=== PATIENT | male | born 1955 | race Caucasian/White ===

== ENCOUNTER → 2016-11-21 | Outpatient (CLI) | payer MEDICARE ==
[~2016-11-21] MED LIST: ASPI-496 PO; ATOR10TA9 PO; CARV3.122 PO; CYCLOBENZAPRINE PO; EZET10TA18 PO; IBUP-1222 PO; LISI-170 PO; METF10002 PO
[2016-11-21 13:43] LABS: ASPARTATE AMINO TRANSFERASE 27 U/L (15-37); BLOOD UREA NITROGEN 20 mg/dL (7-18)
== END | disposition home or self-care (01) ==
LOC: CFH 07:21
PROVIDERS: ATTEND Internal Medicine Cardiovascular Disease
DX: E78.2 Mixed hyperlipidemia (principal); I11.9 Hypertensive heart disease without heart failure
CPT/HCPCS: 36415; 80053; 80061

== ENCOUNTER 2017-09-10 11:20 | Emergency (ER) | payer MEDICARE ==
[~2017-09-10] VITALS: Ht 177.8 cm; Wt 97.2 kg
[2017-09-10 12:24] LABS: BASOPHILS # (AUTO) 0.03 x10^3/uL (0-0.1); BASOPHILS % (AUTO) 1 % (0-1); EOSINOPHILS # (AUTO) 0.21 x10^3/uL (0-0.4); EOSINOPHILS % (AUTO) 3 % (1-7); LYMPHOCYTES # (AUTO) 2.15 x10^3/uL (1-3.4); LYMPHOCYTES % (AUTO) 32 % (22-44); MD NO; MEAN CORPUSCULAR HEMOGLOBIN 29.4 pg (27.5-34.5); MEAN CORPUSCULAR HGB CONC 33.1 g/dL (33.2-36.2); MEAN CORPUSCULAR VOLUME 88.7 fL (81-97); MEAN PLATELET VOLUME 6.9 fL (7.4-10.4); MONOCYTES # (AUTO) 0.62 x10^3/uL (0.2-0.8); MONOCYTES % (AUTO) 9 % (2-9); NEUTROPHILS # (AUTO) 3.76 x10^3/uL (1.8-6.8); NEUTROPHILS % (AUTO) 56 % (42-75); PLATELET COUNT 340 x10^3/uL (130-400); RED BLOOD COUNT 5.01 x10^6/uL (4.38-5.82); RED CELL DISTRIBUTION WIDTH 15.6 % (9.4-14.8)
[2017-09-10 12:27] VITALS: BP 174/100
[2017-09-10 12:32] LABS: PROTHROMBIN TIME 10.4 Seconds (9.6-11.5)
[2017-09-10 12:37] LABS: ALBUMIN 3.5 g/dL (3.4-5.0); ANION GAP 10 mmol/L (5-15); CALCIUM 8.4 mg/dL (8.5-10.1); CHLORIDE 109 mmol/L (98-107)
[2017-09-10 12:41] LABS: TROPONIN I < 0.015 ng/mL (0.000-0.045)
== END 2017-09-10 14:17 | disposition home or self-care (01) ==
LOC: ED 14:11
DX: R07.89 Other chest pain (principal); E78.5 Hyperlipidemia, unspecified; I25.10 Atherosclerotic heart disease of native coronary artery without angina pectoris; I10 Essential (primary) hypertension; I25.2 Old myocardial infarction; E11.9 Type 2 diabetes mellitus without complications; Z96.89 Presence of other specified functional implants
CPT/HCPCS: 36415; 71045; 80048; 82040; 84484; 85025; 85610; 85730; 93005; 99285

== ENCOUNTER → 2018-02-22 | Outpatient (CLI) | payer MEDICARE ==
[2018-02-22 07:39] LABS: ALBUMIN 3.5 g/dL (3.4-5.0); ANION GAP 8 mmol/L (5-15); CALCIUM 7.5 mg/dL (8.5-10.1); CHLORIDE 109 mmol/L (98-107)
[2018-02-22 07:51] LABS: ALANINE AMINOTRANSFERASE 36 U/L (12-78); ALKALINE PHOSPHATASE 69 U/L (45-117); BILIRUBIN,TOTAL 0.4 mg/dL (0.2-1.0); CHOL/HDL RATIO 3.2; CHOLESTEROL, TOTAL 130 mg/dL (140-239); CREATININE 0.96 mg/dL (0.7-1.3); HDL CHOL % 32 % (26-37); HDL CHOLESTEROL (DIRECT) 41 mg/dL (40-60); LDL CHOLESTEROL,CALCULATED 67 mg/dL (54-169); LDL/HDL RATIO 1.6 (0.5-3.0); TOTAL PROTEIN 6.7 g/dL (6.4-8.2); TRIGLYCERIDES 112 mg/dL (50-200); VLDL CHOLESTEROL 22 mg/dL (0-25)
== END | disposition home or self-care (01) ==
LOC: LAB 07:05
PROVIDERS: ATTEND Family Medicine
DX: E11.21 Type 2 diabetes mellitus with diabetic nephropathy (principal); I10 Essential (primary) hypertension
CPT/HCPCS: 36415; 80053; 80061; 82043; 82570; 84443

== ENCOUNTER 2018-02-24 10:54 | Emergency (ER) | payer MEDICARE ==
[~2018-02-24] VITALS: Ht 177.8 cm; Wt 102.1 kg
[2018-02-24] MEDS ORDERED: SODIUM CHLORIDE FLUSH 10ML SYR IVF ONE (11:30)
[2018-02-24] MEDS ORDERED: KETOROLAC 30 MG/1 ML IVPush ONE (11:30)
[2018-02-24] MEDS ORDERED: ONDANSETRON 2MG/ML, 2ML IVPush ONE (11:30)
[2018-02-24 11:31] LABS: BASOPHILS # (AUTO) 0.06 x10^3/uL (0-0.1); BASOPHILS % (AUTO) 1 % (0-1); EOSINOPHILS # (AUTO) 0.19 x10^3/uL (0-0.4); EOSINOPHILS % (AUTO) 4 % (1-7); LYMPHOCYTES # (AUTO) 1.51 x10^3/uL (1-3.4); LYMPHOCYTES % (AUTO) 27 % (22-44); MD NO; MEAN CORPUSCULAR HEMOGLOBIN 29.3 pg (27.5-34.5); MEAN CORPUSCULAR VOLUME 88.8 fL (81-97); MONOCYTES # (AUTO) 0.32 x10^3/uL (0.2-0.8); MONOCYTES % (AUTO) 6 % (2-9); NEUTROPHILS # (AUTO) 3.48 x10^3/uL (1.8-6.8); NEUTROPHILS % (AUTO) 63 % (42-75); PLATELET COUNT 330 x10^3/uL (130-400); RED BLOOD COUNT 4.88 x10^6/uL (4.38-5.82); RED CELL DISTRIBUTION WIDTH 15.7 % (9.4-14.8)
[2018-02-24] MEDS ORDERED: KETOROLAC 30 MG/1 ML ONE (11:34)
[2018-02-24] MEDS ORDERED: ONDANSETRON 2MG/ML, 2ML ONE (11:34)
[2018-02-24 11:44] LABS: ALANINE AMINOTRANSFERASE 43 U/L (12-78); ALBUMIN 3.8 g/dL (3.4-5.0); ANION GAP 8 mmol/L (5-15); CALCIUM 8.6 mg/dL (8.5-10.1); CHLORIDE 108 mmol/L (98-107); CREATININE 1.01 mg/dL (0.7-1.3)
[2018-02-24 11:46] LABS: ALKALINE PHOSPHATASE 70 U/L (45-117); BILIRUBIN,TOTAL 0.4 mg/dL (0.2-1.0); TOTAL PROTEIN 7.1 g/dL (6.4-8.2)
[2018-02-24 12:55] LABS: MICROSCOPIC AUTO
[2018-02-24 12:59] LABS: CULTURE INDICATED? NO
[2018-02-24 13:36] VITALS: BP 174/94
== END 2018-02-24 13:38 | disposition home or self-care (01) ==
LOC: ED 13:05
DX: N13.2 Hydronephrosis with renal and ureteral calculous obstruction (principal); R31.9 Hematuria, unspecified; E11.9 Type 2 diabetes mellitus without complications; E78.5 Hyperlipidemia, unspecified; I25.2 Old myocardial infarction; I10 Essential (primary) hypertension; I25.10 Atherosclerotic heart disease of native coronary artery without angina pectoris; Z95.0 Presence of cardiac pacemaker
CPT/HCPCS: 36415; 74176; 80053; 81001; 85025; 96374; 96375; 99284; J1885; J2405

== ENCOUNTER → 2018-02-24 | Outpatient (CLI) | payer MEDICARE | END | disposition home or self-care (01) | LOC: CFH 10:10 | PROVIDERS: ATTEND Family Medicine | DX: I25.10 Atherosclerotic heart disease of native coronary artery without angina pectoris (principal); R60.0 Localized edema; Z95.0 Presence of cardiac pacemaker | CPT/HCPCS: 36415; 71046; 83880 ==

== ENCOUNTER → 2018-04-09 | Outpatient (CLI) | payer MEDICARE ==
[2018-04-09 12:40] LABS: BASOPHILS # (AUTO) 0.04 x10^3/uL (0-0.1); BASOPHILS % (AUTO) 1 % (0-1); EOSINOPHILS # (AUTO) 0.16 x10^3/uL (0-0.4); EOSINOPHILS % (AUTO) 3 % (1-7); LYMPHOCYTES # (AUTO) 1.77 x10^3/uL (1-3.4); LYMPHOCYTES % (AUTO) 36 % (22-44); MD NO; MEAN CORPUSCULAR HEMOGLOBIN 29.2 pg (27.5-34.5); MEAN CORPUSCULAR HGB CONC 33.2 g/dL (33.2-36.2); MEAN CORPUSCULAR VOLUME 88.1 fL (81-97); MEAN PLATELET VOLUME 7.5 fL (7.4-10.4); MONOCYTES # (AUTO) 0.38 x10^3/uL (0.2-0.8); MONOCYTES % (AUTO) 8 % (2-9); NEUTROPHILS # (AUTO) 2.52 x10^3/uL (1.8-6.8); NEUTROPHILS % (AUTO) 52 % (42-75); PLATELET COUNT 314 x10^3/uL (130-400); RED BLOOD COUNT 5.01 x10^6/uL (4.38-5.82)
[2018-04-09 13:42] LABS: ALBUMIN 3.8 g/dL (3.4-5.0); ANION GAP 8 mmol/L (5-15); CALCIUM 8.9 mg/dL (8.5-10.1); CHLORIDE 108 mmol/L (98-107)
[2018-04-09 13:45] LABS: ALANINE AMINOTRANSFERASE 35 U/L (12-78); ALKALINE PHOSPHATASE 76 U/L (45-117); BILIRUBIN,TOTAL 0.6 mg/dL (0.2-1.0); CHOL/HDL RATIO 3.2; CHOLESTEROL, TOTAL 122 mg/dL (140-239); HDL CHOL % 31 % (26-37); HDL CHOLESTEROL (DIRECT) 38 mg/dL (40-60); LDL CHOLESTEROL,CALCULATED 66 mg/dL (54-169); LDL/HDL RATIO 1.7 (0.5-3.0); TOTAL PROTEIN 7.2 g/dL (6.4-8.2); TRIGLYCERIDES 91 mg/dL (50-200); VLDL CHOLESTEROL 18 mg/dL (0-25)
== END | disposition home or self-care (01) ==
LOC: CFH 06:36
PROVIDERS: ATTEND Physician Assistant Medical
DX: I10 Essential (primary) hypertension (principal); E78.2 Mixed hyperlipidemia; R53.83 Other fatigue; Z79.899 Other long term (current) drug therapy; Z79.82 Long term (current) use of aspirin; Z88.5 Allergy status to narcotic agent; Z91.013 Allergy to seafood
CPT/HCPCS: 36415; 80053; 80061; 85025

== ENCOUNTER → 2018-04-20 | Outpatient (CLI) | payer MEDICARE | END | disposition home or self-care (01) | LOC: CVU 06:42 | PROVIDERS: ATTEND Physician Assistant Medical | DX: I07.1 Rheumatic tricuspid insufficiency (principal); E78.00 Pure hypercholesterolemia, unspecified; R07.9 Chest pain, unspecified; I11.9 Hypertensive heart disease without heart failure | CPT/HCPCS: 0399T; 93306 ==

== ENCOUNTER → 2018-05-12 | Outpatient (CLI) | payer MEDICARE ==
[~2018-05-12] MED LIST changes: +REGADENOSON 0.4 MG/5 ML SYRINGE ONE
== END | disposition home or self-care (01) ==
LOC: CFH 08:40
PROVIDERS: ATTEND Family Medicine
DX: I10 Essential (primary) hypertension (principal); R07.9 Chest pain, unspecified; I47.1 Supraventricular tachycardia; E11.9 Type 2 diabetes mellitus without complications
CPT/HCPCS: 78452; 93017; A9502; J2785

== ENCOUNTER 2018-09-22 16:02 | Inpatient (IN) | payer MEDICARE, MEDICAID ==
[~2018-09-22] VITALS: Ht 177.8 cm; Wt 105.3 kg
[2018-09-25 07:40] VITALS: BP 121/82
== END 2018-09-25 09:40 | disposition left against medical advice (07) | DRG 669 ==
LOC: ED 17:58 → OBSVTOIN 18:21 → EDIP 18:21 → 3NW 19:20
PROVIDERS: ADMIT Internal Medicine; ATTEND Internal Medicine
PROC: 0TC68ZZ Extirpation of Matter from Right Ureter, Via Natural or Artificial Opening Endoscopic (ICD-10-PCS; principal; 2018-09-23)
DX: N13.2 Hydronephrosis with renal and ureteral calculous obstruction (principal); E44.0 Moderate protein-calorie malnutrition; G47.31 Primary central sleep apnea; I25.10 Atherosclerotic heart disease of native coronary artery without angina pectoris; I10 Essential (primary) hypertension; E78.5 Hyperlipidemia, unspecified; E11.9 Type 2 diabetes mellitus without complications; G47.33 Obstructive sleep apnea (adult) (pediatric); R31.29 Other microscopic hematuria; Z90.49 Acquired absence of other specified parts of digestive tract; Z87.442 Personal history of urinary calculi; Z85.038 Personal history of other malignant neoplasm of large intestine; Z95.0 Presence of cardiac pacemaker; I25.2 Old myocardial infarction; Z88.8 Allergy status to other drugs, medicaments and biological substances; Z88.5 Allergy status to narcotic agent; Z91.013 Allergy to seafood; Z68.33 Body mass index [BMI] 33.0-33.9, adult
CPT/HCPCS: 36415; 70450; 74176; 80048; 80053; 81001; 82360; 82962; 83735; 84100; 84443; 85025; 88300; 93005; 96374; 96375; 96376; G0378; J0744; J1100; J1885; J2250; J2405; J2550; J2704; J3010; C1769; J2270; J2370; J3475; J7030

== ENCOUNTER 2018-12-28 07:29 | Outpatient (CLI) | payer MEDICARE, MEDICAID ==
[~2018-12-28 07:29] MED LIST changes: +AMLO-150 PO; +ATOR-2 PO; +CARV25TA12 PO; -EZET10TA18 PO; +EZET10TA70 PO; +HYDR-3237 PO; +MULT-717 PO; +NITR0.4T28 SL; -REGADENOSON 0.4 MG/5 ML SYRINGE ONE; +UBID100C41 PO
== END 2018-12-28 23:59 | disposition home or self-care (01) ==
LOC: CFH 07:29
PROVIDERS: ATTEND Family Medicine
DX: M54.5 Low back pain (principal); M79.605 Pain in left leg
CPT/HCPCS: 72131

== ENCOUNTER → 2019-03-21 | Outpatient (CLI) | payer MEDICARE, MEDICAID ==
[2019-03-21 16:02] LABS: BASOPHILS # (AUTO) 0.04 x10^3/uL (0-0.1); BASOPHILS % (AUTO) 1 % (0-1); EOSINOPHILS % (AUTO) 4 % (1-7); LYMPHOCYTES # (AUTO) 1.95 x10^3/uL (1-3.4); LYMPHOCYTES % (AUTO) 33 % (22-44); MD NO; MEAN CORPUSCULAR HEMOGLOBIN 25.8 pg (27.5-34.5); MEAN CORPUSCULAR VOLUME 80.7 fL (81-97); MEAN PLATELET VOLUME 7.4 fL (7.4-10.4); MONOCYTES # (AUTO) 0.47 x10^3/uL (0.2-0.8); MONOCYTES % (AUTO) 8 % (2-9); NEUTROPHILS # (AUTO) 3.27 x10^3/uL (1.8-6.8); NEUTROPHILS % (AUTO) 55 % (42-75); PLATELET COUNT 380 x10^3/uL (130-400); RED BLOOD COUNT 4.63 x10^6/uL (4.38-5.82); RED CELL DISTRIBUTION WIDTH 16.3 % (9.4-14.8)
[2019-03-21 16:18] LABS: HCT (SEDRATE) 37.4 % (39.2-51.8)
[2019-03-21 16:21] LABS: ALBUMIN 3.6 g/dL (3.4-5.0); ANION GAP 10 mmol/L (5-15); CALCIUM 8.3 mg/dL (8.5-10.1); CHLORIDE 111 mmol/L (98-107)
[2019-03-21 16:49] LABS: ALANINE AMINOTRANSFERASE 36 U/L (12-78); ALKALINE PHOSPHATASE 65 U/L (45-117); BILIRUBIN,TOTAL 0.8 mg/dL (0.2-1.0); C-REACTIVE PROTEIN, QUANT 0.03 mg/dL (0.02-0.49); CREATINE KINASE, TOTAL 65 U/L (39-308); CREATININE 1.03 mg/dL (0.7-1.3)
[2019-03-21 16:51] LABS: FOLATE LEVEL > 20.0 ng/mL (3.1-17.5)
== END | disposition home or self-care (01) ==
LOC: CFH 14:30
PROVIDERS: ATTEND Family Medicine
DX: E11.21 Type 2 diabetes mellitus with diabetic nephropathy (principal); G12.21 Amyotrophic lateral sclerosis; M62.81 Muscle weakness (generalized)
CPT/HCPCS: 36415; 80053; 82550; 82553; 82607; 82746; 83036; 84402; 84403; 85025; 85651; 86038; 86140; 86200; 86430

== ENCOUNTER → 2019-04-01 | Outpatient (CLI) | payer MEDICARE, MEDICAID | END | disposition home or self-care (01) | LOC: CFH 12:18 | PROVIDERS: ATTEND Family Medicine | DX: M50.322 Other cervical disc degeneration at C5-C6 level (principal); M48.02 Spinal stenosis, cervical region; G12.21 Amyotrophic lateral sclerosis; M62.81 Muscle weakness (generalized) | CPT/HCPCS: 72125; 72128 ==

== ENCOUNTER 2019-06-08 11:23 | Outpatient (CLI) | payer MEDICARE, MEDICAID ==
[2019-06-08 15:39] LABS: BASOPHILS # (AUTO) 0.03 x10^3/uL (0-0.1); BASOPHILS % (AUTO) 1 % (0-1); EOSINOPHILS # (AUTO) 0.16 x10^3/uL (0-0.4); EOSINOPHILS % (AUTO) 3 % (1-7); LYMPHOCYTES # (AUTO) 1.85 x10^3/uL (1-3.4); LYMPHOCYTES % (AUTO) 32 % (22-44); MD NO; MEAN CORPUSCULAR HEMOGLOBIN 24.8 pg (27.5-34.5); MEAN CORPUSCULAR VOLUME 77.5 fL (81-97); MEAN PLATELET VOLUME 7.3 fL (7.4-10.4); MONOCYTES # (AUTO) 0.32 x10^3/uL (0.2-0.8); MONOCYTES % (AUTO) 6 % (2-9); NEUTROPHILS # (AUTO) 3.39 x10^3/uL (1.8-6.8); NEUTROPHILS % (AUTO) 59 % (42-75); PLATELET COUNT 419 x10^3/uL (130-400); RED BLOOD COUNT 5.11 x10^6/uL (4.38-5.82); RED CELL DISTRIBUTION WIDTH 20.4 % (9.4-14.8)
[2019-06-08 15:48] LABS: ALBUMIN 3.6 g/dL (3.4-5.0); ANION GAP 9 mmol/L (5-15); CHLORIDE 107 mmol/L (98-107)
[2019-06-08 15:52] LABS: ALANINE AMINOTRANSFERASE 36 U/L (12-78); ALKALINE PHOSPHATASE 84 U/L (45-117); BILIRUBIN,TOTAL 0.2 mg/dL (0.2-1.0); CREATININE 1.19 mg/dL (0.7-1.3); TOTAL PROTEIN 7.2 g/dL (6.4-8.2)
== END 2019-06-08 23:59 | disposition home or self-care (01) ==
LOC: CFH 11:23
PROVIDERS: ATTEND Family Medicine
DX: E83.51 Hypocalcemia (principal); D64.9 Anemia, unspecified
CPT/HCPCS: 36415; 80053; 85025

== ENCOUNTER 2019-07-27 09:58 | Inpatient (IN) | payer MEDICARE, MEDICAID ==
[~2019-07-27] VITALS: Ht 177.8 cm; Wt 87.6 kg
--- NOTE | 2019-07-27 10:27 | NUR ---
REPORT RECEIVED FROM EMS; PT ARRIVES BY AMBULANCE WITH COMPLAINT OF DIARRHEA X 1 WEEK - STATES HE HAS NOTED "SOME BLACK AND RED BLOOD CLOTS" IN STOOL, THIS AM PT AWOKE WITH DIZZINESS WHICH HAS GRADUALLY INCREASED, LEFT SIDED CHEST PAIN, SOB, NAUSEA AND VOMITING. PT STATES HE COUGHED X 1 THIS AM AND NOTED BLOOD TINGED SPUTUM. PT NOTES HEADACHE PRESENT SINCE YESTERDAY, STATES HE HAS CHRONIC HEADACHES. PT DENIES FEVER, SICK CONTACTS, SORE THROAT, TRAVEL, DENIES COUGH WITH EXCEPTION TO ONE EPISODE THIS AM. ZOFRAN 4 MG , ASA 325 MG GIVEN UPHOLSTERY TRIMMER. EKG TAKEN ON ARRIVAL. PT ATTACHED TO ALL MONITORS. PER EMS, PT HAS HAD MOSTLY PACED RHYTHM AT RATE 60, BUT DID HAVE SEVERAL SHORT EPISODES OF BRADYCARDIA (RATE 30'S). SINCE ARRIVAL, PT HAS BEEN PACED AT RATE 60. PT IS A&OX4, REPSS EVEN AND UNLABORED. NEURO INTACT, NO FOCAL WEAKNESS. NO DRIFT NOTED, BILATERAL GRASP EQUAL. PT IN GOWN, CALL LIGHT IN REACH. AWAITING LAB AND CXR RESULTS.
--- NOTE | 2019-07-27 10:32 | NUR ---
RAPHAEL MARINO AT BEDSIDE.
[2019-07-27 10:35] LABS: BASOPHILS # (AUTO) 0.03 x10^3/uL (0-0.1); BASOPHILS % (AUTO) 1 % (0-1); EOSINOPHILS # (AUTO) 0.27 x10^3/uL (0-0.4); EOSINOPHILS % (AUTO) 4 % (1-7); LYMPHOCYTES # (AUTO) 1.25 x10^3/uL (1-3.4); LYMPHOCYTES % (AUTO) 21 % (22-44); MD NO; MEAN CORPUSCULAR HGB CONC 31.6 g/dL (33.2-36.2); MEAN PLATELET VOLUME 6.3 fL (7.4-10.4); MONOCYTES # (AUTO) 0.49 x10^3/uL (0.2-0.8); MONOCYTES % (AUTO) 8 % (2-9); NEUTROPHILS # (AUTO) 4.07 x10^3/uL (1.8-6.8); NEUTROPHILS % (AUTO) 67 % (42-75); PLATELET COUNT 351 x10^3/uL (130-400); RED BLOOD COUNT 4.17 x10^6/uL (4.38-5.82); RED CELL DISTRIBUTION WIDTH 19.1 % (9.4-14.8)
--- NOTE | 2019-07-27 10:48 | NUR ---
PT'S SYMPTOMOLOGY DISCUSSED WITH RAPHAEL MARINO, PER PT IS NOT SUSCPICIOUS FOR COVID.
[2019-07-27 10:51] LABS: ALBUMIN 3.1 g/dL (3.4-5.0); ANION GAP 9 mmol/L (5-15); CALCIUM 8.3 mg/dL (8.5-10.1); CHLORIDE 111 mmol/L (98-107)
[2019-07-27 10:57] LABS: ALKALINE PHOSPHATASE 90 U/L (45-117); CREATININE 0.91 mg/dL (0.7-1.3); TOTAL PROTEIN 6.6 g/dL (6.4-8.2); TROPONIN I < 0.015 ng/mL (0.000-0.045)
[2019-07-27 11:05] LABS: ALANINE AMINOTRANSFERASE 27 U/L (12-78); BILIRUBIN,TOTAL 0.5 mg/dL (0.2-1.0)
--- NOTE | 2019-07-27 11:14 | NUR ---
PACEMAKER INTERROGATION COMPLETE, INTERROGATION DEVICE INITIALLY HAD TRANSMITTOR ERROR SIGNAL. [facility] REP CALLED, DEVICE WAS TROUBLESHOOTED AND REP (ALVAREZ) CONFIRMED READING HAS BEEN TRANSMITTED TO COMPANY. THIS RN WAS TOLD TO EXPECT REPORT TO BE FAXED TO ED WITHIN 15 MIN. THIS RN COMFIRMED [employer] HAS CORRECT FAX NUMBER.
--- NOTE | 2019-07-27 11:27 | NUR ---
ORTHOSTATIC VS TAKEN BY ANGELIA WILL FOLLOWS: SUPINE - 95/56; HR 94 SITTING - 98/65; HR 97 STANDING - 92/57; HR 97
--- NOTE | 2019-07-27 11:29 | NUR ---
THIS RN SPOKE WITH [facility] [employer] MGR TELLO WHO HAS REVIEWED PACER INTERROGATION, PER REP, PT HAS NOT BEEN BRADYCARDIC, STATES THAT PACEMAKER SHOWS NO SIGNS OF DYSFUNCTION.
[2019-07-27] MEDS ORDERED: SODIUM CHLORIDE 0.9% 1,000ML IVBOLUS ONE (12:00)
[2019-07-27] MEDS ORDERED: IRON PO (12:00)
[2019-07-27] MEDS ORDERED: ONDANSETRON ODT 4 MG PO ONE (12:00)
[2019-07-27] MEDS ORDERED: ESCI10TA PO (12:02)
[2019-07-27] MEDS: SODIUM CHLORIDE 0.9% 1,000 ML IV SCH ×2 (12:03→22:24)
--- NOTE | 2019-07-27 12:12 | NUR ---
order received for covid swab, pt placed in droplet plus precautions. surgical mask has been on patient for entirety of ED visit.
[2019-07-27] MEDS ORDERED: ONDANSETRON ODT 4 MG ONE (12:15)
[2019-07-27] MEDS ORDERED: ONDANSETRON 2MG/ML, 2ML IVPush PRN (12:30)
[2019-07-27] MEDS ORDERED: hydrALAzine 20 MG/ML, 1ML IVPush PRN (12:30)
[2019-07-27] MEDS ORDERED: PROMETHAZINE 25 MG/ML, 1ML IM PRN (12:30)
[2019-07-27] MEDS ORDERED: LABETALOL 5MG/ML, 20ML IVPush PRN (12:30)
--- NOTE | 2019-07-27 12:42 | NUR ---
REPORT GIVEN TO ZOHAIB HERNÁNDEZ, PT AWAITING TRANSPORT TO [facility].
[2019-07-27 12:49] LABS: % IRON SATURATION 21 % (20-55); IRON LEVEL 69 mcg/dL (65-175); TOTAL IRON BINDING CAPACITY 325 mcg/dL (250-450)
[2019-07-27 12:52] LABS: TROPONIN I < 0.015 ng/mL (0.000-0.045)
--- NOTE | 2019-07-27 13:06 | NUR ---
covid swab collected by this RN, labeled and walked to lab. pt transported to [id number] by tech x 2. pt a&o, resps even and unlabored, neurologically intact, paced rate 60s with no ectopy on monitor at time of transport.
[2019-07-27 13:17] LABS: HCT (SEDRATE) 31.1 % (39.2-51.8)
[2019-07-27 13:22] VITALS: BP 118/70
[2019-07-27] MEDS: INSULIN LISPRO 100 UNITS/ML, PEN SQ-INSULIN SCH ×3 (13:25→20:42)
[2019-07-27 14:16] VITALS: BP 118/70
[2019-07-27] MEDS: ACETAMINOPHEN 325 MG TABLET PO PRN ×2 (15:23→20:40)
[2019-07-27 18:27] VITALS: BP 118/70
[2019-07-27] MEDS: ATORVASTATIN 80 MG TABLET PO SCH (20:40)
[2019-07-27] MEDS: LISINOPRIL 20 MG TABLET PO SCH (20:40)
[2019-07-27] MEDS: CARVEDILOL 25 MG TABLET PO SCH (20:40)
[2019-07-27] MEDS: MECLIZINE CHEWABLE 25 MG TAB PO SCH (20:40)
[2019-07-27 21:24] LABS: TROPONIN I < 0.015 ng/mL (0.000-0.045)
[2019-07-28 00:03] VITALS: BP 103/64
[2019-07-28 02:47] LABS: BASOPHILS # (AUTO) 0.03 x10^3/uL (0-0.1); BASOPHILS % (AUTO) 1 % (0-1); EOSINOPHILS % (AUTO) 5 % (1-7); LYMPHOCYTES # (AUTO) 1.73 x10^3/uL (1-3.4); LYMPHOCYTES % (AUTO) 44 % (22-44); MD NO; MEAN CORPUSCULAR HGB CONC 32.1 g/dL (33.2-36.2); MEAN CORPUSCULAR VOLUME 77.8 fL (81-97); MEAN PLATELET VOLUME 6.7 fL (7.4-10.4); MONOCYTES # (AUTO) 0.44 x10^3/uL (0.2-0.8); MONOCYTES % (AUTO) 11 % (2-9); NEUTROPHILS # (AUTO) 1.59 x10^3/uL (1.8-6.8); NEUTROPHILS % (AUTO) 40 % (42-75); PLATELET COUNT 337 x10^3/uL (130-400); RED BLOOD COUNT 3.79 x10^6/uL (4.38-5.82); RED CELL DISTRIBUTION WIDTH 19.6 % (9.4-14.8)
[2019-07-28 02:53] LABS: ALANINE AMINOTRANSFERASE 26 U/L (12-78); ALBUMIN 2.7 g/dL (3.4-5.0); ANION GAP 4 mmol/L (5-15); CHLORIDE 116 mmol/L (98-107); CREATININE 0.75 mg/dL (0.7-1.3)
[2019-07-28 02:55] LABS: ALKALINE PHOSPHATASE 79 U/L (45-117); BILIRUBIN,TOTAL 0.2 mg/dL (0.2-1.0); TOTAL PROTEIN 5.8 g/dL (6.4-8.2)
[2019-07-28 03:05] LABS: TROPONIN I < 0.015 ng/mL (0.000-0.045)
[2019-07-28] MEDS: ACETAMINOPHEN 325 MG TABLET PO PRN ×4 (06:30→22:03)
[2019-07-28] MEDS: INSULIN LISPRO 100 UNITS/ML, PEN SQ-INSULIN SCH ×4 (07:00→20:29)
[2019-07-28 07:06] VITALS: BP 113/71
[2019-07-28 07:51] LABS: CLOSTRIDIUM DIFFICILE ANTIGEN NEGATIVE; CLOSTRIDIUM DIFFICILE TOXIN NEGATIVE (Negative)
[2019-07-28] MEDS: EZETIMIBE 10 MG TABLET PO SCH (08:12)
[2019-07-28] MEDS: IRON SUCROSE COMPLEX 100MG/5ML IV SCH (08:12)
[2019-07-28] MEDS: ESCITALOPRAM 10MG TABLET PO SCH (08:12)
[2019-07-28] MEDS: LISINOPRIL 20 MG TABLET PO SCH ×2 (08:12→20:29)
[2019-07-28] MEDS: MECLIZINE CHEWABLE 25 MG TAB PO SCH ×2 (08:13→20:29)
[2019-07-28] MEDS: SODIUM CHLORIDE 0.9% 1,000 ML IV SCH ×3 (08:13→22:03)
[2019-07-28] MEDS: CARVEDILOL 25 MG TABLET PO SCH ×2 (08:13→20:29)
[2019-07-28 09:18] LABS: TROPONIN I < 0.015 ng/mL (0.000-0.045)
[2019-07-28 13:23] VITALS: BP 128/71
[2019-07-28 19:22] VITALS: BP 121/75
[2019-07-28] MEDS: ATORVASTATIN 80 MG TABLET PO SCH (20:29)
[2019-07-29 01:57] VITALS: BP 141/87
[2019-07-29 02:00] VITALS: BP 106/86
[2019-07-29 06:17] LABS: ANION GAP 10 mmol/L (5-15); CALCIUM 8.1 mg/dL (8.5-10.1); CHLORIDE 113 mmol/L (98-107)
[2019-07-29 06:25] LABS: BASOPHILS # (AUTO) 0.03 x10^3/uL (0-0.1); BASOPHILS % (AUTO) 1 % (0-1); EOSINOPHILS # (AUTO) 0.18 x10^3/uL (0-0.4); EOSINOPHILS % (AUTO) 6 % (1-7); LYMPHOCYTES # (AUTO) 1.54 x10^3/uL (1-3.4); LYMPHOCYTES % (AUTO) 48 % (22-44); MD NO; MEAN CORPUSCULAR HEMOGLOBIN 24.8 pg (27.5-34.5); MEAN CORPUSCULAR HGB CONC 31.9 g/dL (33.2-36.2); MEAN CORPUSCULAR VOLUME 77.9 fL (81-97); MEAN PLATELET VOLUME 6.8 fL (7.4-10.4); MONOCYTES # (AUTO) 0.33 x10^3/uL (0.2-0.8); MONOCYTES % (AUTO) 11 % (2-9); NEUTROPHILS # (AUTO) 1.11 x10^3/uL (1.8-6.8); NEUTROPHILS % (AUTO) 35 % (42-75); PLATELET COUNT 315 x10^3/uL (130-400); RED BLOOD COUNT 4.15 x10^6/uL (4.38-5.82); RED CELL DISTRIBUTION WIDTH 18.9 % (9.4-14.8)
[2019-07-29] MEDS: INSULIN LISPRO 100 UNITS/ML, PEN SQ-INSULIN SCH ×4 (07:00→20:01)
[2019-07-29 07:55] VITALS: BP 131/78
[2019-07-29] MEDS: ACETAMINOPHEN 325 MG TABLET PO PRN (08:59)
[2019-07-29] MEDS: IRON SUCROSE COMPLEX 100MG/5ML IV SCH (09:34)
[2019-07-29] MEDS: CARVEDILOL 25 MG TABLET PO SCH ×2 (09:35→20:01)
[2019-07-29] MEDS: LISINOPRIL 20 MG TABLET PO SCH ×2 (09:35→20:01)
[2019-07-29] MEDS: MECLIZINE CHEWABLE 25 MG TAB PO SCH ×4 (09:35→20:01)
[2019-07-29] MEDS: ESCITALOPRAM 10MG TABLET PO SCH (09:35)
[2019-07-29] MEDS: EZETIMIBE 10 MG TABLET PO SCH (09:35)
[2019-07-29] MEDS ORDERED: GOLYTELY 4,000ML ORAL.SOL PO ONE (12:00)
[2019-07-29 13:09] VITALS: BP 134/75
[2019-07-29] MEDS ORDERED: MECLIZINE CHEWABLE 25 MG TAB ONE (15:03)
[2019-07-29 19:03] VITALS: BP 138/81
[2019-07-29] MEDS: ATORVASTATIN 80 MG TABLET PO SCH (20:01)
[2019-07-30 00:29] VITALS: BP 126/80
[2019-07-30] MEDS: SODIUM CHLORIDE 0.9% 1,000 ML IV SCH (03:55)
[2019-07-30 05:43] LABS: BASOPHILS # (AUTO) 0.03 x10^3/uL (0-0.1); BASOPHILS % (AUTO) 1 % (0-1); EOSINOPHILS # (AUTO) 0.17 x10^3/uL (0-0.4); EOSINOPHILS % (AUTO) 4 % (1-7); LYMPHOCYTES # (AUTO) 1.88 x10^3/uL (1-3.4); LYMPHOCYTES % (AUTO) 48 % (22-44); MD NO; MEAN CORPUSCULAR HEMOGLOBIN 24.8 pg (27.5-34.5); MEAN CORPUSCULAR HGB CONC 31.8 g/dL (33.2-36.2); MEAN PLATELET VOLUME 6.5 fL (7.4-10.4); MONOCYTES # (AUTO) 0.43 x10^3/uL (0.2-0.8); MONOCYTES % (AUTO) 11 % (2-9); NEUTROPHILS # (AUTO) 1.41 x10^3/uL (1.8-6.8); NEUTROPHILS % (AUTO) 36 % (42-75); PLATELET COUNT 350 x10^3/uL (130-400); RED BLOOD COUNT 4.18 x10^6/uL (4.38-5.82); RED CELL DISTRIBUTION WIDTH 19.3 % (9.4-14.8)
[2019-07-30] MEDS: INSULIN LISPRO 100 UNITS/ML, PEN SQ-INSULIN SCH ×4 (07:00→21:42)
[2019-07-30 08:09] VITALS: BP 138/88
[2019-07-30] MEDS: EZETIMIBE 10 MG TABLET PO SCH (08:16)
[2019-07-30] MEDS: CARVEDILOL 25 MG TABLET PO SCH ×2 (08:16→21:42)
[2019-07-30] MEDS: MECLIZINE CHEWABLE 25 MG TAB PO SCH ×2 (08:16→16:39)
[2019-07-30] MEDS: ESCITALOPRAM 10MG TABLET PO SCH (08:17)
[2019-07-30] MEDS: IRON SUCROSE COMPLEX 100MG/5ML IV SCH (08:17)
[2019-07-30] MEDS: LISINOPRIL 20 MG TABLET PO SCH ×2 (08:17→21:42)
[2019-07-30 14:10] VITALS: BP 130/87
[2019-07-30] MEDS ORDERED: GOLYTELY 4,000ML ORAL.SOL PO ONE (17:00)
[2019-07-30] MEDS ORDERED: GOLYTELY 4,000ML ORAL.SOL PO PRN (17:00)
[2019-07-30 18:40] VITALS: BP 147/94
[2019-07-30] MEDS: ATORVASTATIN 80 MG TABLET PO SCH (21:42)
[2019-07-30] MEDS: MECLIZINE HCL 25 MG TABLET PO SCH (21:42)
[2019-07-31] MEDS: SODIUM CHLORIDE 0.9% 1,000 ML IV SCH ×2 (00:03→20:03)
[2019-07-31 00:57] VITALS: BP 134/80
[2019-07-31 07:18] VITALS: BP 149/91
[2019-07-31] MEDS: INSULIN LISPRO 100 UNITS/ML, PEN SQ-INSULIN SCH ×4 (08:02→20:43)
[2019-07-31] MEDS: LISINOPRIL 20 MG TABLET PO SCH ×2 (08:04→20:40)
[2019-07-31] MEDS: CARVEDILOL 25 MG TABLET PO SCH ×2 (08:04→20:39)
[2019-07-31] MEDS: ESCITALOPRAM 10MG TABLET PO SCH (08:04)
[2019-07-31] MEDS: EZETIMIBE 10 MG TABLET PO SCH (08:04)
[2019-07-31] MEDS: IRON SUCROSE COMPLEX 100MG/5ML IV SCH (09:55)
[2019-07-31] MEDS: MECLIZINE HCL 25 MG TABLET PO SCH ×3 (10:28→20:40)
[2019-07-31] MEDS ORDERED: OMNIPAQUE 350 MG/ML, 75ML BOTTLE ONE (11:09)
[2019-07-31 12:53] VITALS: BP 142/89
[2019-07-31 18:48] VITALS: BP 114/77
[2019-07-31] MEDS: ATORVASTATIN 80 MG TABLET PO SCH (20:39)
[2019-07-31] MEDS: ACETAMINOPHEN 325 MG TABLET PO PRN (20:41)
[2019-08-01 01:49] VITALS: BP 136/70
[2019-08-01 05:42] LABS: BASOPHILS # (AUTO) 0.01 x10^3/uL (0-0.1); BASOPHILS % (AUTO) 0 % (0-1); EOSINOPHILS % (AUTO) 0 % (1-7); LYMPHOCYTES # (AUTO) 0.37 x10^3/uL (1-3.4); LYMPHOCYTES % (AUTO) 8 % (22-44); MD NO; MEAN CORPUSCULAR HEMOGLOBIN 25.4 pg (27.5-34.5); MEAN CORPUSCULAR HGB CONC 32.4 g/dL (33.2-36.2); MEAN CORPUSCULAR VOLUME 78.6 fL (81-97); MEAN PLATELET VOLUME 6.5 fL (7.4-10.4); MONOCYTES # (AUTO) 0.25 x10^3/uL (0.2-0.8); MONOCYTES % (AUTO) 6 % (2-9); NEUTROPHILS # (AUTO) 3.93 x10^3/uL (1.8-6.8); NEUTROPHILS % (AUTO) 86 % (42-75); PLATELET COUNT 343 x10^3/uL (130-400); RED BLOOD COUNT 4.51 x10^6/uL (4.38-5.82); RED CELL DISTRIBUTION WIDTH 19.6 % (9.4-14.8)
[2019-08-01 05:58] LABS: ALBUMIN 3.2 g/dL (3.4-5.0); ANION GAP 9 mmol/L (5-15); CALCIUM 8.5 mg/dL (8.5-10.1); CHLORIDE 107 mmol/L (98-107)
[2019-08-01 06:02] LABS: ALANINE AMINOTRANSFERASE 43 U/L (12-78); ALKALINE PHOSPHATASE 103 U/L (45-117); BILIRUBIN,TOTAL 0.5 mg/dL (0.2-1.0); CREATININE 1.05 mg/dL (0.7-1.3); TOTAL PROTEIN 6.8 g/dL (6.4-8.2)
[2019-08-01 07:20] VITALS: BP 111/70
[2019-08-01] MEDS: INSULIN LISPRO 100 UNITS/ML, PEN SQ-INSULIN SCH ×4 (07:38→20:21)
[2019-08-01] MEDS: MECLIZINE HCL 25 MG TABLET PO SCH ×3 (09:00→20:11)
[2019-08-01] MEDS: IRON SUCROSE COMPLEX 100MG/5ML IV SCH (09:11)
[2019-08-01] MEDS: EZETIMIBE 10 MG TABLET PO SCH (11:11)
[2019-08-01] MEDS: ESCITALOPRAM 10MG TABLET PO SCH (11:12)
[2019-08-01] MEDS: LISINOPRIL 20 MG TABLET PO SCH (11:12)
[2019-08-01] MEDS: CARVEDILOL 25 MG TABLET PO SCH ×2 (11:13→20:13)
[2019-08-01] MEDS: ACETAMINOPHEN 325 MG TABLET PO PRN (11:13)
[2019-08-01 12:44] VITALS: BP 106/67
[2019-08-01] MEDS: OXYcodone/APAP 5/325MG TABLET PO PRN ×2 (15:51→22:14)
[2019-08-01] MEDS: SODIUM CHLORIDE 0.9% 1,000 ML IV SCH (18:11)
[2019-08-01 18:53] LABS: MICROSCOPIC INDICATED
[2019-08-01 19:58] VITALS: BP 94/65
[2019-08-01] MEDS: ATORVASTATIN 80 MG TABLET PO SCH (20:11)
[2019-08-02 01:21] VITALS: BP 108/70
[2019-08-02] MEDS ORDERED: VANCOMYCIN PER PHARMACY MC PRN (04:00)
[2019-08-02] MEDS ORDERED: VANCOMYCIN 2,000 MG in SODIUM CHLORIDE 0.9% 500 ML IV ONE (04:30)
[2019-08-02] MEDS ORDERED: PHARMACOKINETIC MONITORING MC PRN (04:30)
[2019-08-02] MEDS: INSULIN LISPRO 100 UNITS/ML, PEN SQ-INSULIN SCH ×4 (07:00→20:46)
[2019-08-02 07:57] VITALS: BP 100/61
[2019-08-02] MEDS: CARVEDILOL 25 MG TABLET PO SCH ×2 (09:00→20:28)
[2019-08-02] MEDS: LISINOPRIL 20 MG TABLET PO SCH (09:00)
[2019-08-02] MEDS: FERROUS SULFATE 325 MG TABLET PO SCH (09:37)
[2019-08-02] MEDS: ESCITALOPRAM 10MG TABLET PO SCH (09:38)
[2019-08-02] MEDS: EZETIMIBE 10 MG TABLET PO SCH (09:38)
[2019-08-02] MEDS: OXYcodone/APAP 5/325MG TABLET PO PRN ×3 (09:39→23:02)
[2019-08-02] MEDS: MECLIZINE HCL 25 MG TABLET PO SCH ×3 (11:20→20:28)
[2019-08-02] MEDS: SODIUM CHLORIDE 0.9% 1,000 ML IV SCH (12:09)
[2019-08-02] MEDS: ACETAMINOPHEN 325 MG TABLET PO PRN ×2 (13:02→20:46)
[2019-08-02 15:00] VITALS: BP 115/77
[2019-08-02 19:18] VITALS: BP 132/93
[2019-08-02] MEDS: ATORVASTATIN 80 MG TABLET PO SCH (20:28)
[2019-08-02] MEDS: VANCOMYCIN 1,700 MG in SODIUM CHLORIDE 0.9% 250 ML IV SCH (23:01)
[2019-08-03 01:27] VITALS: BP 102/63
[2019-08-03] MEDS: ACETAMINOPHEN 325 MG TABLET PO PRN (04:04)
[2019-08-03 06:34] LABS: ALANINE AMINOTRANSFERASE 55 U/L (12-78); ALBUMIN 2.7 g/dL (3.4-5.0); ANION GAP 8 mmol/L (5-15); CALCIUM 7.6 mg/dL (8.5-10.1); CHLORIDE 111 mmol/L (98-107); CREATININE 0.76 mg/dL (0.7-1.3); MEAN CORPUSCULAR HEMOGLOBIN 25.3 pg (27.5-34.5); MEAN CORPUSCULAR HGB CONC 31.7 g/dL (33.2-36.2); MEAN CORPUSCULAR VOLUME 79.8 fL (81-97); MEAN PLATELET VOLUME 6.4 fL (7.4-10.4); PLATELET COUNT 250 x10^3/uL (130-400); RED BLOOD COUNT 3.83 x10^6/uL (4.38-5.82); RED CELL DISTRIBUTION WIDTH 20.3 % (9.4-14.8)
[2019-08-03 06:36] LABS: ALKALINE PHOSPHATASE 77 U/L (45-117); BILIRUBIN,TOTAL 0.4 mg/dL (0.2-1.0); TOTAL PROTEIN 6.3 g/dL (6.4-8.2)
[2019-08-03 07:06] VITALS: BP 129/76
[2019-08-03] MEDS: INSULIN LISPRO 100 UNITS/ML, PEN SQ-INSULIN SCH ×4 (07:40→20:32)
[2019-08-03 07:51] LABS: ANISOCYTOSIS 2+; BASOPHILS # (AUTO) 0.04 x10^3/uL (0-0.1); BASOPHILS % (AUTO) 1 % (0-1); ECHINOCYTES 1+; EOSINOPHILS # (AUTO) 0.08 x10^3/uL (0-0.4); EOSINOPHILS % (AUTO) 2 % (1-7); LYMPHOCYTES # (AUTO) 1.02 x10^3/uL (1-3.4); LYMPHOCYTES % (AUTO) 29 % (22-44); MD MORPH REVIEW ONLY; MONOCYTES # (AUTO) 0.51 x10^3/uL (0.2-0.8); MONOCYTES % (AUTO) 14 % (2-9); NEUTROPHILS # (AUTO) 1.92 x10^3/uL (1.8-6.8); NEUTROPHILS % (AUTO) 54 % (42-75); OVALOCYTES 1+; POLYCHROMASIA 1+
[2019-08-03 07:52] LABS: <PLATELET ESTIMATE> ADEQUATE; <PLT MORPHOLOGY> NORMAL PLT MORPH
[2019-08-03] MEDS: OXYcodone/APAP 5/325MG TABLET PO PRN ×2 (08:47→20:54)
[2019-08-03] MEDS: EZETIMIBE 10 MG TABLET PO SCH (08:48)
[2019-08-03] MEDS: ESCITALOPRAM 10MG TABLET PO SCH (08:48)
[2019-08-03] MEDS: FERROUS SULFATE 325 MG TABLET PO SCH (08:49)
[2019-08-03] MEDS: LISINOPRIL 20 MG TABLET PO SCH (08:49)
[2019-08-03] MEDS: CARVEDILOL 25 MG TABLET PO SCH ×2 (08:50→20:53)
[2019-08-03] MEDS: SODIUM CHLORIDE 0.9% 1,000 ML IV SCH (08:55)
[2019-08-03] MEDS: MECLIZINE HCL 25 MG TABLET PO SCH ×3 (11:29→20:54)
[2019-08-03] MEDS: BUTALB/APAP/CAFFEINE 50MG/325MG/40MG PO PRN (11:29)
[2019-08-03 13:41] VITALS: BP 122/82
[2019-08-03] MEDS: VANCOMYCIN 1,700 MG in SODIUM CHLORIDE 0.9% 250 ML IV SCH (17:13)
[2019-08-03 20:00] VITALS: BP 132/84
[2019-08-03 20:52] VITALS: BP 143/86
[2019-08-03] MEDS: ATORVASTATIN 80 MG TABLET PO SCH (20:54)
[2019-08-04 01:40] VITALS: BP_SYST 122; BP_SYST 127; BP_DIAS 78
[2019-08-04 05:43] LABS: MEAN CORPUSCULAR HEMOGLOBIN 25.8 pg (27.5-34.5); MEAN CORPUSCULAR HGB CONC 32.6 g/dL (33.2-36.2); MEAN CORPUSCULAR VOLUME 79.3 fL (81-97); MEAN PLATELET VOLUME 6.7 fL (7.4-10.4); PLATELET COUNT 251 x10^3/uL (130-400); RED BLOOD COUNT 3.81 x10^6/uL (4.38-5.82)
[2019-08-04 05:47] LABS: CHLORIDE 113 mmol/L (98-107)
[2019-08-04 05:49] LABS: RED CELL DISTRIBUTION WIDTH 20.9 % (9.4-14.8)
[2019-08-04 05:54] LABS: ALANINE AMINOTRANSFERASE 47 U/L (12-78); ALBUMIN 2.5 g/dL (3.4-5.0); ALKALINE PHOSPHATASE 76 U/L (45-117); ANION GAP 8 mmol/L (5-15); BILIRUBIN,TOTAL 0.3 mg/dL (0.2-1.0); CALCIUM 7.7 mg/dL (8.5-10.1); CREATININE 0.82 mg/dL (0.7-1.3); TOTAL PROTEIN 6.2 g/dL (6.4-8.2)
[2019-08-04 05:57] LABS: MD YES
[2019-08-04 06:00] LABS: <PLATELET ESTIMATE> ADEQUATE; <PLT MORPHOLOGY> NORMAL PLT MORPH; ANISOCYTOSIS 2+; BASOS#(MANUAL) 0.03 x10^3/uL (0-0.1); BASOS% (MANUAL) 1 % (0-1); ECHINOCYTES 1+; EOS% (MANUAL) 3 % (1-7); LYMPH#(MANUAL) 1.57 x10^3/uL (1-3.4); LYMPHS% (MANUAL) 49 % (22-44); MONOS#(MANUAL) 0.29 x10^3/uL (0.3-2.7); MONOS% (MANUAL) 9 % (2-9); OVALOCYTES 1+; POLYCHROMASIA 1+; SEG#(MANUAL) 1.22 x10^3/uL (1.8-6.8); SEGS% (MANUAL) 38 % (42-75)
[2019-08-04] MEDS: INSULIN LISPRO 100 UNITS/ML, PEN SQ-INSULIN SCH ×4 (07:00→21:14)
[2019-08-04 07:29] VITALS: BP 143/85
[2019-08-04] MEDS: EZETIMIBE 10 MG TABLET PO SCH (08:40)
[2019-08-04] MEDS: ESCITALOPRAM 10MG TABLET PO SCH (08:40)
[2019-08-04] MEDS: FERROUS SULFATE 325 MG TABLET PO SCH (08:40)
[2019-08-04] MEDS: LISINOPRIL 20 MG TABLET PO SCH (08:40)
[2019-08-04] MEDS: CARVEDILOL 25 MG TABLET PO SCH ×2 (08:41→20:59)
[2019-08-04] MEDS: SODIUM CHLORIDE 0.9% 1,000 ML IV SCH (08:42)
[2019-08-04] MEDS: VANCOMYCIN 1,700 MG in SODIUM CHLORIDE 0.9% 250 ML IV SCH (11:25)
[2019-08-04] MEDS: MECLIZINE HCL 25 MG TABLET PO SCH ×3 (11:25→21:00)
[2019-08-04] MEDS: BUTALB/APAP/CAFFEINE 50MG/325MG/40MG PO PRN (11:25)
[2019-08-04] MEDS: OXYcodone/APAP 5/325MG TABLET PO PRN ×2 (11:26→21:14)
[2019-08-04 12:36] VITALS: BP 126/80
[2019-08-04 19:24] VITALS: BP 136/84
[2019-08-04 20:57] VITALS: BP 153/87
[2019-08-04] MEDS: ATORVASTATIN 80 MG TABLET PO SCH (21:00)
[2019-08-04] MEDS ORDERED: VANCOMYCIN 1,400 MG in SODIUM CHLORIDE 0.9% 250 ML IV SCH (23:00)
[2019-08-05 01:15] VITALS: BP 138/77
[2019-08-05] MEDS: SODIUM CHLORIDE 0.9% 1,000 ML IV SCH (05:30)
[2019-08-05 06:37] LABS: BASOPHILS # (AUTO) 0.05 x10^3/uL (0-0.1); BASOPHILS % (AUTO) 1 % (0-1); EOSINOPHILS # (AUTO) 0.17 x10^3/uL (0-0.4); EOSINOPHILS % (AUTO) 5 % (1-7); LYMPHOCYTES # (AUTO) 1.67 x10^3/uL (1-3.4); LYMPHOCYTES % (AUTO) 52 % (22-44); MD NO; MEAN CORPUSCULAR HEMOGLOBIN 25.9 pg (27.5-34.5); MEAN CORPUSCULAR HGB CONC 32.5 g/dL (33.2-36.2); MEAN CORPUSCULAR VOLUME 79.7 fL (81-97); MEAN PLATELET VOLUME 6.7 fL (7.4-10.4); MONOCYTES % (AUTO) 12 % (2-9); NEUTROPHILS # (AUTO) 0.96 x10^3/uL (1.8-6.8); NEUTROPHILS % (AUTO) 30 % (42-75); PLATELET COUNT 264 x10^3/uL (130-400); RED BLOOD COUNT 3.76 x10^6/uL (4.38-5.82); RED CELL DISTRIBUTION WIDTH 20.6 % (9.4-14.8)
[2019-08-05 07:00] VITALS: BP 159/98
[2019-08-05] MEDS: INSULIN LISPRO 100 UNITS/ML, PEN SQ-INSULIN SCH ×4 (07:00→20:50)
[2019-08-05] MEDS: MECLIZINE HCL 25 MG TABLET PO SCH ×3 (09:00→20:49)
[2019-08-05] MEDS: FERROUS SULFATE 325 MG TABLET PO SCH (09:10)
[2019-08-05] MEDS: LISINOPRIL 20 MG TABLET PO SCH (09:10)
[2019-08-05] MEDS: ESCITALOPRAM 10MG TABLET PO SCH (09:10)
[2019-08-05] MEDS: CARVEDILOL 25 MG TABLET PO SCH ×2 (09:10→20:49)
[2019-08-05] MEDS: ACETAMINOPHEN 325 MG TABLET PO PRN (09:11)
[2019-08-05] MEDS: EZETIMIBE 10 MG TABLET PO SCH (09:11)
[2019-08-05] MEDS ORDERED: CEFTRIAXONE PMX 2GM/50ML 50 ML IV SCH (10:30)
[2019-08-05] MEDS: CEFAZOLIN 2,000 MG in SODIUM CHLORIDE 0.9% 50 ML IV SCH ×2 (11:31→19:05)
[2019-08-05 13:01] VITALS: BP 98/69
[2019-08-05] MEDS: BUTALB/APAP/CAFFEINE 50MG/325MG/40MG PO PRN (13:44)
[2019-08-05 19:14] VITALS: BP 154/85
[2019-08-05 20:48] VITALS: BP 155/86
[2019-08-05] MEDS: ATORVASTATIN 80 MG TABLET PO SCH (20:49)
[2019-08-05] MEDS: OXYcodone/APAP 5/325MG TABLET PO PRN (21:03)
[2019-08-05] MEDS ORDERED: MELATONIN 5 MG TABLET PO ONE (23:30)
[2019-08-06 01:13] VITALS: BP 126/81
[2019-08-06] MEDS: SODIUM CHLORIDE 0.9% 1,000 ML IV SCH (01:41)
[2019-08-06] MEDS: CEFAZOLIN 2,000 MG in SODIUM CHLORIDE 0.9% 50 ML IV SCH (03:35)
[2019-08-06 06:57] VITALS: BP 158/104
[2019-08-06] MEDS: INSULIN LISPRO 100 UNITS/ML, PEN SQ-INSULIN SCH ×4 (07:47→20:33)
[2019-08-06] MEDS ORDERED: TRAZODONE 50MG TABLET PO PRN (09:30)
[2019-08-06] MEDS: EZETIMIBE 10 MG TABLET PO SCH (10:07)
[2019-08-06] MEDS: FERROUS SULFATE 325 MG TABLET PO SCH (10:08)
[2019-08-06] MEDS: OXYcodone/APAP 5/325MG TABLET PO PRN ×2 (10:08→17:34)
[2019-08-06] MEDS: ESCITALOPRAM 10MG TABLET PO SCH (10:08)
[2019-08-06] MEDS: CARVEDILOL 25 MG TABLET PO SCH ×2 (10:08→20:30)
[2019-08-06] MEDS: MECLIZINE HCL 25 MG TABLET PO SCH ×3 (10:27→20:30)
[2019-08-06] MEDS: CEFAZOLIN PMX 2GM/50ML 50 ML IVPB SCH ×2 (11:34→20:29)
[2019-08-06] MEDS: BUTALB/APAP/CAFFEINE 50MG/325MG/40MG PO PRN ×2 (11:34→17:34)
[2019-08-06 13:47] VITALS: BP 124/76
[2019-08-06 19:00] VITALS: BP 150/91
[2019-08-06] MEDS: ATORVASTATIN 80 MG TABLET PO SCH (20:30)
[2019-08-07 01:04] VITALS: BP 152/95
[2019-08-07] MEDS: CEFAZOLIN PMX 2GM/50ML 50 ML IVPB SCH ×3 (04:55→20:23)
[2019-08-07 06:44] LABS: BASOPHILS # (AUTO) 0.05 x10^3/uL (0-0.1); BASOPHILS % (AUTO) 1 % (0-1); EOSINOPHILS # (AUTO) 0.17 x10^3/uL (0-0.4); EOSINOPHILS % (AUTO) 5 % (1-7); LYMPHOCYTES # (AUTO) 1.69 x10^3/uL (1-3.4); LYMPHOCYTES % (AUTO) 46 % (22-44); MD NO; MEAN CORPUSCULAR HEMOGLOBIN 25.6 pg (27.5-34.5); MEAN CORPUSCULAR HGB CONC 31.5 g/dL (33.2-36.2); MEAN CORPUSCULAR VOLUME 81.2 fL (81-97); MEAN PLATELET VOLUME 6.7 fL (7.4-10.4); MONOCYTES # (AUTO) 0.33 x10^3/uL (0.2-0.8); MONOCYTES % (AUTO) 9 % (2-9); NEUTROPHILS # (AUTO) 1.46 x10^3/uL (1.8-6.8); NEUTROPHILS % (AUTO) 39 % (42-75); PLATELET COUNT 332 x10^3/uL (130-400); RED BLOOD COUNT 4.12 x10^6/uL (4.38-5.82); RED CELL DISTRIBUTION WIDTH 21.5 % (9.4-14.8)
[2019-08-07 06:51] LABS: ALBUMIN 2.7 g/dL (3.4-5.0); ANION GAP 5 mmol/L (5-15); CALCIUM 7.9 mg/dL (8.5-10.1); CHLORIDE 111 mmol/L (98-107)
[2019-08-07 06:55] LABS: ALANINE AMINOTRANSFERASE 31 U/L (12-78); ALKALINE PHOSPHATASE 79 U/L (45-117); BILIRUBIN,TOTAL 0.3 mg/dL (0.2-1.0); CREATININE 0.93 mg/dL (0.7-1.3); TOTAL PROTEIN 6.3 g/dL (6.4-8.2)
[2019-08-07] MEDS: INSULIN LISPRO 100 UNITS/ML, PEN SQ-INSULIN SCH ×4 (07:00→20:08)
[2019-08-07 07:35] VITALS: BP 159/98
[2019-08-07] MEDS: CARVEDILOL 25 MG TABLET PO SCH ×2 (08:18→20:23)
[2019-08-07] MEDS: LISINOPRIL 20 MG TABLET PO SCH (08:18)
[2019-08-07] MEDS: ESCITALOPRAM 10MG TABLET PO SCH (08:18)
[2019-08-07] MEDS: EZETIMIBE 10 MG TABLET PO SCH (08:18)
[2019-08-07] MEDS: FERROUS SULFATE 325 MG TABLET PO SCH (08:19)
[2019-08-07] MEDS: BUTALB/APAP/CAFFEINE 50MG/325MG/40MG PO PRN ×2 (09:17→20:28)
[2019-08-07] MEDS: MECLIZINE HCL 25 MG TABLET PO SCH (09:17)
[2019-08-07] MEDS: OXYcodone/APAP 5/325MG TABLET PO PRN ×2 (09:18→20:28)
[2019-08-07] MEDS ORDERED: BENZOCAINE AEROSOL SPRAY 20%, 60ML TP PRN (10:30)
[2019-08-07] MEDS ORDERED: LIDOCAINE 2% VISCOUS, 100ML MM PRN (10:30)
[2019-08-07] MEDS: CHLORTHALIDONE 25 MG TABLET PO SCH (11:54)
[2019-08-07 12:44] VITALS: BP 130/86
[2019-08-07] MEDS: MECLIZINE 25 MG TABLET PO SCH ×2 (16:20→20:23)
[2019-08-07 19:20] VITALS: BP 152/92
[2019-08-07] MEDS: ATORVASTATIN 80 MG TABLET PO SCH (20:23)
[2019-08-08] VITALS (7 sets, daily range): BP systolic 92–133; BP diastolic 61–86
[2019-08-08] MEDS: CEFAZOLIN PMX 2GM/50ML 50 ML IVPB SCH ×3 (05:08→20:34)
[2019-08-08] MEDS: INSULIN LISPRO 100 UNITS/ML, PEN SQ-INSULIN SCH ×4 (07:00→20:34)
[2019-08-08 07:35] LABS: HCT (SEDRATE) 37.5 % (39.2-51.8)
[2019-08-08] MEDS: EZETIMIBE 10 MG TABLET PO SCH (08:47)
[2019-08-08] MEDS: CHLORTHALIDONE 25 MG TABLET PO SCH (08:48)
[2019-08-08] MEDS: ESCITALOPRAM 10MG TABLET PO SCH (08:48)
[2019-08-08] MEDS: MECLIZINE 25 MG TABLET PO SCH ×3 (08:48→20:35)
[2019-08-08] MEDS: FERROUS SULFATE 325 MG TABLET PO SCH (08:48)
[2019-08-08] MEDS: CARVEDILOL 25 MG TABLET PO SCH ×2 (08:48→20:35)
[2019-08-08] MEDS: LISINOPRIL 20 MG TABLET PO SCH (08:54)
[2019-08-08] MEDS ORDERED: PROPOFOL 10 MG/ML, 20ML ONE (09:23)
[2019-08-08] MEDS ORDERED: SODIUM CHLORIDE 0.9% 1,000 ML IV ONE (10:30)
[2019-08-08] MEDS: OXYcodone/APAP 5/325MG TABLET PO PRN (12:37)
[2019-08-08] MEDS: ATORVASTATIN 80 MG TABLET PO SCH (20:34)
[2019-08-08] MEDS: BUTALB/APAP/CAFFEINE 50MG/325MG/40MG PO PRN (20:35)
[2019-08-09 00:50] VITALS: BP 105/70
[2019-08-09] MEDS: CEFAZOLIN PMX 2GM/50ML 50 ML IVPB SCH ×3 (04:40→22:02)
[2019-08-09] MEDS: BUTALB/APAP/CAFFEINE 50MG/325MG/40MG PO PRN ×2 (04:47→21:01)
[2019-08-09 06:00] LABS: BASOPHILS # (AUTO) 0.04 x10^3/uL (0-0.1); BASOPHILS % (AUTO) 1 % (0-1); EOSINOPHILS # (AUTO) 0.11 x10^3/uL (0-0.4); EOSINOPHILS % (AUTO) 3 % (1-7); LYMPHOCYTES # (AUTO) 1.98 x10^3/uL (1-3.4); LYMPHOCYTES % (AUTO) 45 % (22-44); MD NO; MEAN CORPUSCULAR HEMOGLOBIN 25.8 pg (27.5-34.5); MEAN CORPUSCULAR HGB CONC 32.3 g/dL (33.2-36.2); MEAN CORPUSCULAR VOLUME 79.8 fL (81-97); MEAN PLATELET VOLUME 7.1 fL (7.4-10.4); MONOCYTES % (AUTO) 9 % (2-9); NEUTROPHILS # (AUTO) 1.87 x10^3/uL (1.8-6.8); NEUTROPHILS % (AUTO) 43 % (42-75); PLATELET COUNT 384 x10^3/uL (130-400); RED BLOOD COUNT 4.43 x10^6/uL (4.38-5.82)
[2019-08-09] MEDS: INSULIN LISPRO 100 UNITS/ML, PEN SQ-INSULIN SCH ×4 (07:00→20:37)
[2019-08-09] MEDS: ESCITALOPRAM 10MG TABLET PO SCH (08:30)
[2019-08-09] MEDS: FERROUS SULFATE 325 MG TABLET PO SCH (08:30)
[2019-08-09] MEDS ORDERED: MECLIZINE 25 MG TABLET PO PRN (08:30)
[2019-08-09] MEDS: EZETIMIBE 10 MG TABLET PO SCH (08:31)
[2019-08-09] MEDS: CARVEDILOL 25 MG TABLET PO SCH ×2 (08:32→21:01)
[2019-08-09] MEDS ORDERED: LISINOPRIL 20 MG TABLET PO SCH (09:00)
[2019-08-09 09:45] VITALS: BP 91/64
[2019-08-09] MEDS ORDERED: FENTANYL PF 250 MCG/5ML ONE (12:09)
[2019-08-09] MEDS ORDERED: MIDAZOLAM 1 MG/ML, 5ML ONE (12:09)
[2019-08-09] MEDS ORDERED: DIPHENHYDRAMINE 50 MG/ML, 1ML ONE (12:13)
[2019-08-09] MEDS ORDERED: ONDANSETRON 2MG/ML, 2ML ONE (12:25)
[2019-08-09] MEDS ORDERED: NALOXONE 0.4 MG/ML, 1ML IVPush PRN ×2 (13:00)
[2019-08-09 13:06] VITALS: BP 101/71
[2019-08-09] MEDS: PHARMACY INSTRUCTION MC SCH ×2 (14:00→20:00)
[2019-08-09 18:49] VITALS: BP 118/83
[2019-08-09] MEDS: ATORVASTATIN 80 MG TABLET PO SCH (21:01)
[2019-08-10] MEDS: PHARMACY INSTRUCTION MC SCH ×3 (00:36→14:00)
[2019-08-10 02:00] VITALS: BP 111/78
[2019-08-10] MEDS: CEFAZOLIN PMX 2GM/50ML 50 ML IVPB SCH ×2 (05:52→15:09)
[2019-08-10] MEDS: BUTALB/APAP/CAFFEINE 50MG/325MG/40MG PO PRN ×2 (06:00→11:49)
[2019-08-10 06:37] LABS: BASOPHILS # (AUTO) 0.03 x10^3/uL (0-0.1); BASOPHILS % (AUTO) 1 % (0-1); EOSINOPHILS % (AUTO) 2 % (1-7); LYMPHOCYTES % (AUTO) 38 % (22-44); MD NO; MEAN CORPUSCULAR HEMOGLOBIN 25.8 pg (27.5-34.5); MEAN CORPUSCULAR HGB CONC 32.1 g/dL (33.2-36.2); MEAN CORPUSCULAR VOLUME 80.3 fL (81-97); MONOCYTES # (AUTO) 0.44 x10^3/uL (0.2-0.8); MONOCYTES % (AUTO) 9 % (2-9); NEUTROPHILS # (AUTO) 2.45 x10^3/uL (1.8-6.8); NEUTROPHILS % (AUTO) 51 % (42-75); PLATELET COUNT 421 x10^3/uL (130-400); RED BLOOD COUNT 4.57 x10^6/uL (4.38-5.82); RED CELL DISTRIBUTION WIDTH 21.5 % (9.4-14.8)
[2019-08-10 06:44] LABS: CALCIUM 8.9 mg/dL (8.5-10.1); CHLORIDE 105 mmol/L (98-107)
[2019-08-10 06:50] LABS: ALANINE AMINOTRANSFERASE 30 U/L (12-78); ALBUMIN 3.2 g/dL (3.4-5.0); ALKALINE PHOSPHATASE 96 U/L (45-117); ANION GAP 10 mmol/L (5-15); BILIRUBIN,TOTAL 0.3 mg/dL (0.2-1.0); CREATININE 1.07 mg/dL (0.7-1.3); TOTAL PROTEIN 7.2 g/dL (6.4-8.2)
[2019-08-10] MEDS: INSULIN LISPRO 100 UNITS/ML, PEN SQ-INSULIN SCH ×3 (07:00→16:15)
[2019-08-10 07:33] VITALS: BP 95/72
[2019-08-10] MEDS: ESCITALOPRAM 10MG TABLET PO SCH (09:17)
[2019-08-10] MEDS: FERROUS SULFATE 325 MG TABLET PO SCH (09:18)
[2019-08-10] MEDS: EZETIMIBE 10 MG TABLET PO SCH (09:18)
[2019-08-10 09:20] VITALS: BP 108/66
[2019-08-10] MEDS: ACETAMINOPHEN 325 MG TABLET PO PRN ×2 (09:28→16:18)
[2019-08-10 12:00] VITALS: BP 108/73
[2019-08-10] MEDS ORDERED: LISI5TAB7 PO (13:47)
[2019-08-10] MEDS ORDERED: CARV12.52 PO (13:47)
[2019-08-10] MEDS ORDERED: CARVEDILOL 12.5 MG TABLET PO SCH (21:00)
[2019-08-11] MEDS ORDERED: LISINOPRIL 5 MG TABLET PO SCH (09:00)
[2019-08-11 15:37] LABS: ANA SCREEN NEGATIVE (Negative)
== END 2019-08-10 17:18 | disposition home or self-care (01) | DRG 378 ==
LOC: ED 10:59 → EDIP 12:03 → 4NW 14:14 → 3N 08-01 10:04 → 4WST 08-02 15:00
PROVIDERS: ADMIT Internal Medicine; ATTEND Internal Medicine
PROC: 02HV33Z Insertion of Infusion Device into Superior Vena Cava, Percutaneous Approach (ICD-10-PCS; principal; 2019-08-10)
PROC: B548ZZA Ultrasonography of Superior Vena Cava, Guidance (ICD-10-PCS; 2019-08-10)
DX: K92.1 Melena (principal); R78.81 Bacteremia; D50.9 Iron deficiency anemia, unspecified; R13.14 Dysphagia, pharyngoesophageal phase; E86.0 Dehydration; F39 Unspecified mood [affective] disorder; G47.33 Obstructive sleep apnea (adult) (pediatric); E11.9 Type 2 diabetes mellitus without complications; I25.10 Atherosclerotic heart disease of native coronary artery without angina pectoris; E78.5 Hyperlipidemia, unspecified; I10 Essential (primary) hypertension; R07.89 Other chest pain; G89.29 Other chronic pain; M54.9 Dorsalgia, unspecified; Z20.818 Contact with and (suspected) exposure to other bacterial communicable diseases; R20.2 Paresthesia of skin; M10.9 Gout, unspecified; I49.5 Sick sinus syndrome; J45.909 Unspecified asthma, uncomplicated; I34.0 Nonrheumatic mitral (valve) insufficiency; Z95.0 Presence of cardiac pacemaker; Z85.038 Personal history of other malignant neoplasm of large intestine; Z79.899 Other long term (current) drug therapy; Z88.5 Allergy status to narcotic agent; Z91.013 Allergy to seafood; Z90.49 Acquired absence of other specified parts of digestive tract; I25.2 Old myocardial infarction
CPT/HCPCS: 36415; 36573; 71045; 71275; 72127; 80048; 80053; 80202; 81001; 82525; 82607; 82728; 82962; 83036; 83540; 83550; 83605; 84145; 84155; 84165; 84443; 84446; 84484; 84550; 85014; 85018; 85025; 85379; 85651; 86038; 86140; 86430; 86850; 86900; 87040; 87186; 87324; 89055; 93005; 93308; 93312; 93321; 93325; 93880; 93970; 99285; G0378; J0690; J1756; J2250; J2405; J2704; J3010; J3370; Q0162; Q9967; C1751; J1200; J1815; J7030; J7040; J7050; U0001-CS

== ENCOUNTER → 2019-08-19 | Outpatient (CLI) | payer MEDICARE, MEDICAID ==
[~2019-08-19] MED LIST changes: +CARV12.52 PO; +ESCI10TA PO; +IRON PO; +LISI5TAB7 PO; +OMNIPAQUE 350 MG/ML, 100ML BOTTLE ONE
== END | disposition home or self-care (01) ==
LOC: RAD 12:25
PROVIDERS: ATTEND Internal Medicine Infectious Disease
DX: K44.9 Diaphragmatic hernia without obstruction or gangrene (principal); K57.30 Diverticulosis of large intestine without perforation or abscess without bleeding; B95.7 Other staphylococcus as the cause of diseases classified elsewhere
CPT/HCPCS: 74177; Q9967

== ENCOUNTER → 2019-08-28 | Outpatient (CLI) | payer MEDICARE, MEDICAID ==
[~2019-08-28] MED LIST changes: -OMNIPAQUE 350 MG/ML, 100ML BOTTLE ONE
== END | disposition home or self-care (01) ==
LOC: RAD 10:28
PROVIDERS: ATTEND Internal Medicine Infectious Disease
DX: B95.7 Other staphylococcus as the cause of diseases classified elsewhere (principal); M79.601 Pain in right arm

== ENCOUNTER 2019-09-04 09:51 | Observation (INO) | payer MEDICARE, MEDICAID ==
[~2019-09-04] VITALS: Ht 177.8 cm; Wt 92.1 kg
--- NOTE | 2019-09-04 09:58 | NUR ---
Pt to room from infusion center-pt c/o 10/09 "heaviness" in chest starting this morning when he woke up. Pt also reports dizziness and SOB with this. Pt speaking in full sentences, resp even and unlabored. Pt placed in gown, positioned for comfort in bed. Continuous heart, oxygen and BP Monitors applied, all safety measures observed. 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 Pt has single lumen PICC in R upper arm, appears CDI.
--- NOTE | 2019-09-04 10:25 | NUR ---
Pt to xray via [facility].
[2019-09-04] MEDS ORDERED: SODIUM CHLORIDE FLUSH 10ML SYR IVF ONE (10:30)
[2019-09-04] MEDS ORDERED: SODIUM CHLORIDE 0.9% 1,000ML IVBOLUS ONE (10:30)
[2019-09-04 10:32] LABS: MEAN CORPUSCULAR HEMOGLOBIN 26.9 pg (27.5-34.5); MEAN CORPUSCULAR HGB CONC 31.5 g/dL (33.2-36.2); MEAN CORPUSCULAR VOLUME 85.5 fL (81-97); MEAN PLATELET VOLUME 6.5 fL (7.4-10.4); PLATELET COUNT 230 x10^3/uL (130-400); RED BLOOD COUNT 4.56 x10^6/uL (4.38-5.82)
[2019-09-04 10:43] LABS: ALANINE AMINOTRANSFERASE 56 U/L (12-78); ALBUMIN 3.2 g/dL (3.4-5.0); ANION GAP 4 mmol/L (5-15); CALCIUM 7.9 mg/dL (8.5-10.1); CHLORIDE 112 mmol/L (98-107); CREATININE 0.81 mg/dL (0.7-1.3)
[2019-09-04 10:44] LABS: BASOPHILS # (AUTO) 0.04 x10^3/uL (0-0.1); BASOPHILS % (AUTO) 1 % (0-1); EOSINOPHILS # (AUTO) 0.27 x10^3/uL (0-0.4); EOSINOPHILS % (AUTO) 6 % (1-7); LYMPHOCYTES # (AUTO) 1.42 x10^3/uL (1-3.4); LYMPHOCYTES % (AUTO) 30 % (22-44); MD SCAN; MONOCYTES # (AUTO) 0.36 x10^3/uL (0.2-0.8); MONOCYTES % (AUTO) 8 % (2-9); NEUTROPHILS # (AUTO) 2.59 x10^3/uL (1.8-6.8); NEUTROPHILS % (AUTO) 55 % (42-75)
[2019-09-04 10:49] LABS: ALKALINE PHOSPHATASE 80 U/L (45-117); BILIRUBIN,TOTAL 0.2 mg/dL (0.2-1.0)
[2019-09-04 10:50] LABS: TOTAL PROTEIN 6.7 g/dL (6.4-8.2); TROPONIN I < 0.015 ng/mL (0.000-0.045)
[2019-09-04] MEDS ORDERED: OMNIPAQUE 350 MG/ML, 100ML BOTTLE ONE (11:00)
--- NOTE | 2019-09-04 11:04 | NUR ---
Pt back from xray and then straight [facility]. Pt resting in [place].
--- NOTE | 2019-09-04 12:07 | NUR ---
Pt ambulatory to bathroom with steady gait, this RN SBA. Pt reports sx have mostly resolved but still feels dizzy.
[2019-09-04] MEDS ORDERED: CARV-39 PO (12:14)
[2019-09-04] MEDS ORDERED: AMLO-150 PO (12:14)
--- NOTE | 2019-09-04 12:14 | NUR ---
Pt ambulatory back to room, positioned for comfort in bed. POC discussed. Pt denies other needs.
[2019-09-04] MEDS ORDERED: NITROGLYCERIN OINT 2%, 1GM TP ONE ×2 (12:30→13:39)
[2019-09-04] MEDS ORDERED: ASPIRIN 81 MG TABLET CHEW PO ONE (12:30)
[2019-09-04] MEDS ORDERED: DOCUSATE 100 MG CAPSULE PO PRN (13:00)
[2019-09-04] MEDS ORDERED: morphine SULFATE 10 MG/ML, 1ML IVPush PRN (13:00)
[2019-09-04] MEDS ORDERED: DIPHENHYDRAMINE 25 MG CAPSULE PO PRN (13:00)
[2019-09-04] MEDS ORDERED: ONDANSETRON 2MG/ML, 2ML IVPush PRN (13:00)
[2019-09-04] MEDS ORDERED: ENALAPRILAT 1.25 MG/ML, 2ML IVPush PRN (13:00)
[2019-09-04] MEDS ORDERED: ONDANSETRON ODT 4 MG PO PRN (13:00)
[2019-09-04] MEDS ORDERED: ERTAPENEM 1 GM in SODIUM CHLORIDE 0.9% 50 ML IV SCH ×2 (13:00→18:00)
--- NOTE | 2019-09-04 13:13 | NUR ---
Ruth medication given by brake mechanic.
[2019-09-04] MEDS ORDERED: ASPIRIN 81 MG TABLET CHEW ONE (13:36)
--- NOTE | 2019-09-04 13:49 | NUR ---
RECEIVED REPORT FROM [facility] PLAN OF CARE DISCUSSED. PT RESTING, ORDERED MEAL, VERBALIZED NO OTHER NEEDS AT THIS TIME.
[2019-09-04] MEDS ORDERED: MECLIZINE 25 MG TABLET PO PRN (14:30)
--- NOTE | 2019-09-04 14:35 | NUR ---
MEAL PROVIDED, PT VERBALIZED NO OTHER NEEDS AT THIS TIME. AWAITING CTELE BED AVAILABILTY
[2019-09-04 15:34] LABS: TROPONIN I < 0.015 ng/mL (0.000-0.045)
[2019-09-04] MEDS ORDERED: ACETAMINOPHEN 325 MG TABLET ONE (15:37)
--- NOTE | 2019-09-04 15:39 | NUR ---
PT C/O OF HEADACHE MEDICATED WITH TYLENOL PER ORDERS
[2019-09-04] MEDS: ACETAMINOPHEN 325 MG TABLET PO PRN ×2 (15:40→18:48)
--- NOTE | 2019-09-04 15:52 | NUR ---
PT UP TO BATHROOM, GAIT STEADY, BACK TO ROOM VERBALIZED NO NEEDS AT THIS TIME
--- NOTE | 2019-09-04 17:36 | NUR ---
REPORT TO LORNE PENNY, PLAN OF CARE DISCUSSED
[2019-09-04 18:05] VITALS: BP 131/80
[2019-09-04] MEDS: metFORMIN 500 MG TABLET PO SCH (18:51)
[2019-09-04 19:34] VITALS: BP 124/77
[2019-09-04] MEDS ORDERED: ATORVASTATIN 80 MG TABLET PO SCH (21:00)
[2019-09-04] MEDS: CARVEDILOL 25 MG TABLET PO SCH (22:12)
[2019-09-05 02:25] VITALS: BP 97/66
[2019-09-05 06:01] LABS: MEAN CORPUSCULAR HEMOGLOBIN 27.5 pg (27.5-34.5); MEAN CORPUSCULAR HGB CONC 32.4 g/dL (33.2-36.2); MEAN CORPUSCULAR VOLUME 84.8 fL (81-97); MEAN PLATELET VOLUME 7.1 fL (7.4-10.4); PLATELET COUNT 203 x10^3/uL (130-400); RED BLOOD COUNT 4.25 x10^6/uL (4.38-5.82); RED CELL DISTRIBUTION WIDTH 22.6 % (9.4-14.8)
[2019-09-05 06:11] LABS: ANION GAP 5 mmol/L (5-15); CALCIUM 7.6 mg/dL (8.5-10.1); CHLORIDE 112 mmol/L (98-107)
[2019-09-05 06:20] LABS: BASOPHILS # (AUTO) 0.04 x10^3/uL (0-0.1); BASOPHILS % (AUTO) 1 % (0-1); EOSINOPHILS # (AUTO) 0.33 x10^3/uL (0-0.4); EOSINOPHILS % (AUTO) 6 % (1-7); LYMPHOCYTES # (AUTO) 1.76 x10^3/uL (1-3.4); LYMPHOCYTES % (AUTO) 34 % (22-44); MD SCAN; MONOCYTES # (AUTO) 0.48 x10^3/uL (0.2-0.8); MONOCYTES % (AUTO) 9 % (2-9); NEUTROPHILS # (AUTO) 2.58 x10^3/uL (1.8-6.8); NEUTROPHILS % (AUTO) 50 % (42-75)
[2019-09-05] MEDS ORDERED: EZETIMIBE 10 MG TABLET PO SCH (09:00)
[2019-09-05] MEDS ORDERED: LORATADINE 10 MG TABLET PO SCH (09:00)
[2019-09-05] MEDS ORDERED: ESCITALOPRAM 10MG TABLET PO SCH (09:00)
[2019-09-05] MEDS ORDERED: ASPIRIN 81 MG TABLET EC PO SCH (09:00)
[2019-09-05] MEDS ORDERED: ERTAPENEM 1 GM in SODIUM CHLORIDE 0.9% 50 ML IV SCH (09:00)
[2019-09-05] MEDS ORDERED: AMLODIPINE 5 MG TABLET PO SCH (09:00)
[2019-09-05 09:20] VITALS: BP 120/76
[2019-09-05] MEDS: metFORMIN 500 MG TABLET PO SCH (09:55)
[2019-09-05] MEDS: CARVEDILOL 25 MG TABLET PO SCH (09:56)
[2019-09-05] MEDS ORDERED: ASA/APAP/ CAFFEINE TABLET PO ONE (11:30)
[2019-09-05] MEDS ORDERED: MECL-101 PO (12:35)
[2019-09-05 13:29] VITALS: BP 125/81
== END 2019-09-05 14:15 | disposition home or self-care (01) ==
LOC: ED 10:29 → INTOOBSV 12:19 → EDIP 12:19 → 5SO 17:53 → DCLOUNGE 09-05 14:06
PROVIDERS: ADMIT Internal Medicine; ATTEND Hospitalist
DX: R42 Dizziness and giddiness (principal); R78.81 Bacteremia; R00.1 Bradycardia, unspecified; B95.8 Unspecified staphylococcus as the cause of diseases classified elsewhere; R53.1 Weakness; I10 Essential (primary) hypertension; E11.65 Type 2 diabetes mellitus with hyperglycemia; E78.5 Hyperlipidemia, unspecified; I25.10 Atherosclerotic heart disease of native coronary artery without angina pectoris; I25.2 Old myocardial infarction; R07.89 Other chest pain; R51 Headache; D64.9 Anemia, unspecified; G47.33 Obstructive sleep apnea (adult) (pediatric); Z85.038 Personal history of other malignant neoplasm of large intestine; Z87.442 Personal history of urinary calculi; Z79.899 Other long term (current) drug therapy; Z95.0 Presence of cardiac pacemaker
CPT/HCPCS: 36415; 70450; 70496; 70498; 71046; 80048; 80053; 84484; 85025; 87040; 96361; 96365; 96375; 97162; 99285; G0378; J1335; J2270; J7030; Q9967

== ENCOUNTER → 2019-09-29 | Outpatient (CLI) | payer MEDICARE, MEDICAID ==
[~2019-09-29] MED LIST changes: +CARV-39 PO; +MECL-101 PO
[2019-09-29 12:56] LABS: BASOPHILS # (AUTO) 0.03 x10^3/uL (0-0.1); BASOPHILS % (AUTO) 1 % (0-1); EOSINOPHILS # (AUTO) 0.22 x10^3/uL (0-0.4); EOSINOPHILS % (AUTO) 4 % (1-7); LYMPHOCYTES # (AUTO) 1.53 x10^3/uL (1-3.4); LYMPHOCYTES % (AUTO) 31 % (22-44); MD NO; MEAN CORPUSCULAR HEMOGLOBIN 27.3 pg (27.5-34.5); MEAN CORPUSCULAR HGB CONC 31.6 g/dL (33.2-36.2); MEAN CORPUSCULAR VOLUME 86.4 fL (81-97); MEAN PLATELET VOLUME 6.9 fL (7.4-10.4); MONOCYTES # (AUTO) 0.38 x10^3/uL (0.2-0.8); MONOCYTES % (AUTO) 8 % (2-9); NEUTROPHILS # (AUTO) 2.76 x10^3/uL (1.8-6.8); NEUTROPHILS % (AUTO) 56 % (42-75); PLATELET COUNT 272 x10^3/uL (130-400); RED BLOOD COUNT 4.65 x10^6/uL (4.38-5.82); RED CELL DISTRIBUTION WIDTH 21.2 % (9.4-14.8)
[2019-09-29 13:04] LABS: HCT (SEDRATE) 40.2 % (39.2-51.8)
[2019-09-29 13:11] LABS: CHLORIDE 113 mmol/L (98-107)
[2019-09-29 13:42] LABS: ALANINE AMINOTRANSFERASE 37 U/L (12-78); ALBUMIN 3.5 g/dL (3.4-5.0); ALKALINE PHOSPHATASE 93 U/L (45-117); ANION GAP 9 mmol/L (5-15); BILIRUBIN,TOTAL 0.3 mg/dL (0.2-1.0); C-REACTIVE PROTEIN, QUANT 0.23 mg/dL (0.02-0.49); CALCIUM 8.8 mg/dL (8.5-10.1); CREATININE 0.91 mg/dL (0.7-1.3)
== END | disposition home or self-care (01) ==
LOC: CFH 07:10
PROVIDERS: ATTEND Family Medicine
DX: E11.21 Type 2 diabetes mellitus with diabetic nephropathy (principal); R78.81 Bacteremia
CPT/HCPCS: 36415; 80053; 83036; 85025; 85651; 86140; 87040

== ENCOUNTER → 2019-10-11 | Outpatient (CLI) | payer MEDICARE, MEDICAID ==
[~2019-10-11] MED LIST changes: +OMNIPAQUE 350 MG/ML, 150 ML BOTTLE ONE
== END | disposition home or self-care (01) ==
LOC: CFH 13:46
PROVIDERS: ATTEND Family Medicine
DX: M50.21 Other cervical disc displacement, high cervical region (principal); M48.061 Spinal stenosis, lumbar region without neurogenic claudication; M48.02 Spinal stenosis, cervical region; M79.89 Other specified soft tissue disorders; M62.81 Muscle weakness (generalized); R78.81 Bacteremia
CPT/HCPCS: 72126; 72129; 72132; Q9967

== ENCOUNTER 2019-10-31 12:10 | Day surgery (SDC) | payer MEDICARE, MEDICAID ==
[~2019-10-31 12:10] MED LIST changes: -OMNIPAQUE 350 MG/ML, 150 ML BOTTLE ONE
[2019-10-31 12:46] VITALS: BP 118/76
[2019-10-31] MEDS ORDERED: SODIUM CHLORIDE 0.9% 1,000 ML IV SCH (12:55)
[2019-10-31] MEDS ORDERED: PLEASE ENTER HEIGHT AND WEIGHT MC SCH (13:00)
[2019-10-31] MEDS ORDERED: LIDOCAINE-MPF 1%, 5ML ONE (13:51)
[2019-10-31] MEDS ORDERED: OMNIPAQUE 300 MG/ML, 10ML VIAL ONE (14:00)
[2019-10-31] MEDS ORDERED: KETOROLAC 30 MG/1 ML ONE (15:25)
[2019-10-31] MEDS ORDERED: KETOROLAC 30 MG/1 ML IM ONE (15:30)
[2019-10-31 16:35] LABS: GLUCOSE, CSF 47 mg/dL (40-80); TOTAL PROTEIN,CSF 42 mg/dL (15-45)
== END 2019-10-31 18:05 | disposition home or self-care (01) ==
LOC: RAD 12:10
PROVIDERS: ATTEND Registered Nurse
DX: M62.81 Muscle weakness (generalized) (principal); M51.86 Other intervertebral disc disorders, lumbar region; M50.81 Other cervical disc disorders, high cervical region; M50.821 Other cervical disc disorders at C4-C5 level; I10 Essential (primary) hypertension; E78.00 Pure hypercholesterolemia, unspecified; I25.2 Old myocardial infarction; F41.9 Anxiety disorder, unspecified; F32.9 Major depressive disorder, single episode, unspecified; M19.90 Unspecified osteoarthritis, unspecified site; G43.909 Migraine, unspecified, not intractable, without status migrainosus; G47.00 Insomnia, unspecified; E11.9 Type 2 diabetes mellitus without complications; Z91.013 Allergy to seafood; Z88.5 Allergy status to narcotic agent; Z79.899 Other long term (current) drug therapy; Z79.82 Long term (current) use of aspirin; Z87.891 Personal history of nicotine dependence; Z95.0 Presence of cardiac pacemaker; Z98.890 Other specified postprocedural states
CPT/HCPCS: 36415; 62284; 72126; 72129; 72132; 82040; 82042; 82784; 82945; 83605; 83873; 84157; 87070; 87205; 89051; Q9967

== ENCOUNTER → 2019-11-16 | Outpatient (CLI) | payer MEDICAID, MEDICARE ==
[2019-11-16 12:48] LABS: HCT (SEDRATE) 36.6 % (39.2-51.8)
== END | disposition home or self-care (01) ==
LOC: CFH 11:27
PROVIDERS: ATTEND Family Medicine
DX: M35.3 Polymyalgia rheumatica (principal)
CPT/HCPCS: 36415; 82550; 85651

== ENCOUNTER 2019-12-08 13:44 | Emergency (ER) | payer MEDICARE, MEDICAID ==
[~2019-12-08] VITALS: Ht 177.8 cm; Wt 97.5 kg
[2019-12-08 14:48] LABS: ANION GAP 6 mmol/L (5-15); CALCIUM 8.6 mg/dL (8.5-10.1); CHLORIDE 110 mmol/L (98-107); CREATININE 1.13 mg/dL (0.7-1.3)
[2019-12-08 14:49] LABS: ALANINE AMINOTRANSFERASE 43 U/L (12-78); ALBUMIN 3.6 g/dL (3.4-5.0)
[2019-12-08 14:51] LABS: ALKALINE PHOSPHATASE 74 U/L (45-117); BILIRUBIN,TOTAL 0.3 mg/dL (0.2-1.0); TOTAL PROTEIN 7.2 g/dL (6.4-8.2)
[2019-12-08 15:00] LABS: BASOPHILS % (AUTO) 1 % (0-1); EOSINOPHILS % (AUTO) 4 % (1-7); LYMPHOCYTES % (AUTO) 41 % (22-44); MEAN CORPUSCULAR HEMOGLOBIN 25.2 pg (27.5-34.5); MEAN CORPUSCULAR HGB CONC 31.8 g/dL (33.2-36.2); MEAN PLATELET VOLUME 6.7 fL (7.4-10.4); MONOCYTES % (AUTO) 11 % (2-9); NEUTROPHILS % (AUTO) 43 % (42-75); PLATELET COUNT 375 x10^3/uL (130-400); RED BLOOD COUNT 4.54 x10^6/uL (4.38-5.82); RED CELL DISTRIBUTION WIDTH 17.7 % (9.4-14.8)
--- NOTE | 2019-12-08 15:14 | NUR ---
BUNDLE WRAPPER: PT TO ROOM FROM LOBBY.
[2019-12-08 15:15] LABS: MD NO
--- NOTE | 2019-12-08 15:32 | NUR ---
ASSUMED CARE OF PATIENT. PATIENT REPORTS BILATERAL FLANK PAIN. VS STABLE. CALL LIGHT IN PLACE. UA SENT. WILL CONTINUE TO MONITOR.
[2019-12-08 15:38] VITALS: BP 113/72
[2019-12-08 15:54] LABS: MICROSCOPIC INDICATED
== END 2019-12-08 16:55 | disposition home or self-care (01) ==
LOC: ED 15:40
DX: R10.9 Unspecified abdominal pain (principal); M54.9 Dorsalgia, unspecified; I10 Essential (primary) hypertension; E11.9 Type 2 diabetes mellitus without complications; E78.5 Hyperlipidemia, unspecified; I25.2 Old myocardial infarction; I25.10 Atherosclerotic heart disease of native coronary artery without angina pectoris; Z95.0 Presence of cardiac pacemaker; Z87.891 Personal history of nicotine dependence
CPT/HCPCS: 36415; 80053; 81001; 85025; 99283

== ENCOUNTER 2020-03-06 17:07 | Emergency (ER) | payer MEDICARE, MEDICAID ==
[~2020-03-06] VITALS: Ht 177.8 cm; Wt 101.8 kg
[~2020-03-06 17:07] MED LIST changes: -ESCI10TA PO; +ESCI10TA5 PO
--- NOTE | 2020-03-06 19:25 | NUR ---
PT TO ROOM FROM LOBBY
[2020-03-06] MEDS ORDERED: METHOCARBAMOL 750 MG TABLET ONE (20:17)
[2020-03-06] MEDS ORDERED: KETOROLAC 30 MG/1 ML ONE (20:18)
[2020-03-06 20:26] VITALS: BP 150/82
[2020-03-06] MEDS ORDERED: KETOROLAC 30 MG/1 ML IM ONE (20:30)
[2020-03-06] MEDS ORDERED: METHOCARBAMOL 750 MG TABLET PO ONE (20:30)
== END 2020-03-06 21:45 | disposition home or self-care (01) ==
LOC: ED 21:00
DX: S39.012A Strain of muscle, fascia and tendon of lower back, initial encounter (principal); E11.9 Type 2 diabetes mellitus without complications; I10 Essential (primary) hypertension; I25.2 Old myocardial infarction; E78.5 Hyperlipidemia, unspecified; I25.10 Atherosclerotic heart disease of native coronary artery without angina pectoris; Z95.0 Presence of cardiac pacemaker; X58.XXXA Exposure to other specified factors, initial encounter; Y93.89 Activity, other specified; Y92.89 Other specified places as the place of occurrence of the external cause; Y99.8 Other external cause status
CPT/HCPCS: 72110; 96372; 99283; J1885; J7512

== ENCOUNTER → 2020-09-18 | Outpatient (CLI) | payer MEDICARE, MEDICAID ==
[~2020-09-18] MED LIST changes: -ESCI10TA5 PO; +ESCI10TA97 PO
== END | disposition home or self-care (01) ==
LOC: CFH 10:00
PROVIDERS: ATTEND Family Medicine
DX: M25.562 Pain in left knee (principal)